=== PATIENT | male | born 1955 | race Caucasian/White ===

== ENCOUNTER 2016-07-29 07:22 | Observation (INO) | payer OTHER ==
[~2016-07-29 07:22] MED LIST: ASPIRIN EC81 MG PO; BACTRIM DS1 TAB PO; BETADINE 10% EXT; COLACE-T100 MG PO; GLUCAGON EME1 MG/KIT IJ; GLUCAGON EMERGEN1 MG IM; GLUCOPHAGE1000 MG PO; HUMALOG MI100 UNIT/4 SQ; HUMALOG100 UNIT/2 SQ; HYDROCODON-ACE1 EAC7 PO; KOMBIGLYZE XR1 EAC1 PO; KOMBIGLYZE XR1 EAC2 PO; LANTUS100 U/ML; LANTUS100 U/ML SC; LANTUS100 UNITS/ SQ; LEVAQUIN750 MG PO; LISINOPRIL20 MG; LISINOPRIL5 M1 PO; LOVENOX40 MG/0.4 SQ; REGLAN5 MG PO; RIFAMPIN300 MG PO; SYNTHROID50 MC1 PO; TYLENOL325 MG PO; VITAMIN D31000 UNI4 PO
[2016-07-29 08:05] LABS: BASO % 0.6 % (0-2); BASO ABSOLUTE COUNT 0.1 tho/cmm (0.0-0.2); EOS % 3.6 % (0-7); EOSINOPHIL ABSOLUTE COUNT 0.5 tho/cmm (0.0-0.7); HCT-HEMATOCRIT 44.9 % (36.0-53.5); HGB-HEMOGLOBIN 15.8 gm/dl (13.5-17.0); LYMPH % 31.1 % (20-45); LYMPH ABSOLUTE COUNT 4.5 tho/cmm (0.8-4.5); MCH (MEAN CORPUSCULAR HGB) 30.6 pg (28.0-32.0); MCHC MEAN CORPUSCULAR HGB CONC 35.2 % (32.0-36.0); MEAN PLATELET VOLUME 11.4 cmc (9.4-12.4); MONO % 9.3 % (0-12); MONOCYTE ABSOLUTE COUNT 1.4 tho/cmm (0.0-1.2); NEUTROPHIL ABSOLUTE COUNT 8.1 tho/cmm (1.6-8.0); NEUTROPHIL-AUTOMATED 8.1 tho/cmm (1.6-8.0); NEUTROPHILS % 55.4 % (40-80); PLATELET COUNT 196 tho/cmm (150-450); RED BLOOD COUNT 5.16 mil/cmm (4.40-5.70); RED CELL DISTRIBUTION WIDTH 12.1 % (12.4-16.4); WHITE BLOOD COUNT 14.6 tho/cmm (4.0-10.0)
[2016-07-29 08:17] LABS: BLOOD UREA NITROGEN 22 mg/dl (6-24); CARBON DIOXIDE-VENOUS 28 mmol/L (22-32); CHLORIDE 106 mmol/l (96-110); CREATININE 0.96 mg/dl (0.60-1.30); SODIUM 146 mmol/L (135-145); eGFR VALUE FOR BLACK >90 mL/Min
[2016-07-29 08:20] LABS: ANION GAP 15 mmol/L (0-20)
[2016-07-29 08:22] LABS: GLUCOSE 55 mg/dL (70-110); POTASSIUM 2.7 mmol/L (3.7-5.1)
[2016-07-29 09:29] LABS: PROCALCITONIN <0.05 ng/ml (0.05-0.09)
[2016-07-29 09:31] LABS: ALBUMIN 3.4 g/dl (3.5-5.0); ALKALINE PHOSPHATASE 122 U/L (33-138); ALT/SGPT 18 U/L (12-78); ANION GAP 11 mmol/L (0-20); AST/SGOT 15 U/L (10-40); BILIRUBIN,TOTAL 0.6 mg/dl (0.0-1.5); BLOOD UREA NITROGEN 22 mg/dl (6-24); CALCIUM 8.5 mg/dl (8.5-10.5); CARBON DIOXIDE-VENOUS 30 mmol/L (22-32); CHLORIDE 106 mmol/l (96-110); CREATININE 0.92 mg/dl (0.60-1.30); POTASSIUM 3.5 mmol/L (3.7-5.1); SODIUM 143 mmol/L (135-145); eGFR VALUE FOR BLACK >90 mL/Min
[2016-07-29 09:52] LABS: GLUCOSE 199 mg/dL (70-110)
[2016-07-29 10:32] LABS: URINE APPEARANCE CLEAR; URINE BILIRUBIN NEGATIVE (NEG); URINE BLOOD MODERATE (NEG); URINE COLOR PALE YELLOW; URINE GLUCOSE (UA) LARGE (NEG); URINE KETONE NEGATIVE (NEG); URINE LEUKOCYTE ESTERASE POSITIVE (NEG); URINE NITRITE NEGATIVE (NEG); URINE PROTEIN NEGATIVE (NEG); URINE SPECIFIC GRAVITY 1.005 (1.003-1.030)
[2016-07-29 10:40] LABS: URINE EPITHELIAL CELLS RARE /[HPF] (0-10)
[2016-07-29 14:59] LABS: BLOOD UREA NITROGEN 15 mg/dl (6-24); CARBON DIOXIDE-VENOUS 30 mmol/L (22-32); CHLORIDE 103 mmol/l (96-110); CREATININE 1.04 mg/dl (0.60-1.30); SODIUM 139 mmol/L (135-145); eGFR VALUE FOR BLACK >90 mL/Min
[2016-07-29 15:00] LABS: ANION GAP 11 mmol/L (0-20); GLUCOSE 432 mg/dL (70-110)
[2016-07-29 22:13] LABS: ANION GAP 10 mmol/L (0-20); BLOOD UREA NITROGEN 15 mg/dl (6-24); CARBON DIOXIDE-VENOUS 30 mmol/L (22-32); CHLORIDE 106 mmol/l (96-110); CREATININE 1.22 mg/dl (0.60-1.30); GLUCOSE 290 mg/dL (70-110); POTASSIUM 4.8 mmol/L (3.7-5.1); SODIUM 141 mmol/L (135-145); eGFR VALUE FOR BLACK 74 mL/Min
[2016-07-30 05:32] LABS: BASO % 0.5 % (0-2); EOS % 3.2 % (0-7); EOSINOPHIL ABSOLUTE COUNT 0.2 tho/cmm (0.0-0.7); HCT-HEMATOCRIT 39.5 % (36.0-53.5); HGB-HEMOGLOBIN 13.6 gm/dl (13.5-17.0); IMMATURE GRANULOCYTES ABSOLUTE 0.01 tho/cmm (0-0.03); IMMATURE GRANULOCYTES PERCENT 0.1 % (0-0.3); LYMPH % 24.2 % (20-45); LYMPH ABSOLUTE COUNT 1.8 tho/cmm (0.8-4.5); MCH (MEAN CORPUSCULAR HGB) 30.4 pg (28.0-32.0); MCHC MEAN CORPUSCULAR HGB CONC 34.4 % (32.0-36.0); MCV (MEAN CELL VOLUME) 88.4 fl (82.0-96.0); MEAN PLATELET VOLUME 11.2 cmc (9.4-12.4); MONO % 6.3 % (0-12); MONOCYTE ABSOLUTE COUNT 0.5 tho/cmm (0.0-1.2); NEUTROPHIL ABSOLUTE COUNT 4.9 tho/cmm (1.6-8.0); NEUTROPHIL-AUTOMATED 4.9 tho/cmm (1.6-8.0); NEUTROPHILS % 65.7 % (40-80); PLATELET COUNT 137 tho/cmm (150-450); RED BLOOD COUNT 4.47 mil/cmm (4.40-5.70); RED CELL DISTRIBUTION WIDTH 12.3 % (12.4-16.4); WHITE BLOOD COUNT 7.5 tho/cmm (4.0-10.0)
[2016-07-30 05:56] LABS: ANION GAP 10 mmol/L (0-20); BLOOD UREA NITROGEN 15 mg/dl (6-24); CALCIUM 8.3 mg/dl (8.5-10.5); CARBON DIOXIDE-VENOUS 28 mmol/L (22-32); CHLORIDE 106 mmol/l (96-110); GLUCOSE 273 mg/dL (70-110); POTASSIUM 4.7 mmol/L (3.7-5.1); SODIUM 139 mmol/L (135-145); eGFR VALUE FOR BLACK >90 mL/Min
[2016-07-30 05:59] LABS: C-REACTIVE PROTEIN <0.3 mg/dl (0-0.9); TSH-THYROID STIMULATING HORM. 1.82 uIU/ml (0.40-3.80)
== END 2016-07-30 10:18 ==
LOC: EDMED 07:22 → EMR2 10:34 → CAR1 12:27
PROVIDERS: Emergency Medicine; Nurse Practitioner; ADMIT Family Medicine
DX: E10.649 Type 1 diabetes mellitus with hypoglycemia without coma (principal); E87.6 Hypokalemia; D72.829 Elevated white blood cell count, unspecified; E03.9 Hypothyroidism, unspecified; E55.9 Vitamin D deficiency, unspecified; Z79.4 Long term (current) use of insulin; Z79.82 Long term (current) use of aspirin; Z79.899 Other long term (current) drug therapy; Z83.3 Family history of diabetes mellitus; Z98.890 Other specified postprocedural states
CPT/HCPCS: G0378; J1815; J2543; J3370; J3480; J7030